=== PATIENT | female | born 1960 | race Hispanic/Latino ===

== ENCOUNTER 2019-10-06 20:05 | Emergency (ER) | payer OTHER ==
[2019-10-06] MEDS ORDERED: ACETAMINOPHEN EXTRA STRENGTH 500 MG TABLET ONE (21:40)
== END 2019-10-06 22:44 | disposition home or self-care (01) ==
LOC: EDH 20:05
DX: S83.8X2A Sprain of other specified parts of left knee, initial encounter (principal); M54.5 Low back pain; E78.00 Pure hypercholesterolemia, unspecified; W01.0XXA Fall on same level from slipping, tripping and stumbling without subsequent striking against object, initial encounter; Y93.89 Activity, other specified; Y92.89 Other specified places as the place of occurrence of the external cause; Y99.8 Other external cause status
CPT/HCPCS: 29505; 72100; 73562

== ENCOUNTER → 2023-11-30 | Outpatient (CLI) | payer OTHER | LOC: RAH 11:25 | PROVIDERS: ATTEND Family Medicine | DX: Z13.6 Encounter for screening for cardiovascular disorders (principal) | CPT/HCPCS: 75571 ==